=== PATIENT | male | born 1955 | race Caucasian/White ===

== ENCOUNTER 2017-01-16 13:32 | Emergency (ER) | payer BC, OTHER ==
[2017-01-16 13:51] VITALS: TEMP 99.6; BMI 30.4
--- NOTE | 2017-01-16 14:23 | PDOC ---
History of Present Illness - General History Source: Patient Exam Limitations: No Limitations - History of Present Illness Initial Comments: 01/16/17 14:46 The patient is a 61 year old male, with a significant past medical history of COPD, hypertension, hyperlipidemia, and ID (s/p cardiac stents X3), who presents to the emergency department complaining of 2 week history of a cough. Patient reports the cough is productive yellow/white sputum. He reports associated chest pain and back pain, which he describes as sharp. He reports his pain is pleuritic in nature.Over the past couple of days he has felt a subjective fever and chills, but admits he has not taken his temperature. Patient reports he has been using his albuterol pump more frequently than normal. He denies any shortness of breath, diaphoresis, or palpitations. He denies any leg pain or difficulty ambulating. Patient reports his chest and back pain are worse at night. He denies any recent travel or sick contacts Allergies: NKDA Past Surgical History: Cardiac stents X3 Social History: Current everyday smoker(10 cigarettes per day). Social ETOH use. No recreational drug use. <Mikayla Pedraza - Last Filed: 01/16/17 15:18> - General History Source: Patient, Old Records Exam Limitations: No Limitations <Terri Menjivar - Last Filed: 01/16/17 18:11> - General Stated Complaint: COUGH, BACK PAIN Time Seen by Provider: 01/16/17 14:22 Past History <Mikayla Pedraza - Last Filed: 01/16/17 15:18> - Past Medical History Cardiac Disorders: Yes (ID) HTN: Yes Hypercholesterolemia: Yes - Surgical History Cardiac Surgery: Yes (STENTS X 3.) - Psycho/Social/Smoking Cessation Hx Anxiety: No Suicidal Ideation: No Smoking History: Current every day smoker Have you smoked in the past 12 months: No Number of Cigarettes Smoked Daily: 10 Information on smoking cessation initiated: Yes 'Breaking Loose' booklet given: 01/16/17 Hx Alcohol Use: Yes (SOCIAL) Drug/Substance Use Hx: No Substance Use Type: None Hx Substance Use Treatment: No <Terri Menjivar - Last Filed: 01/16/17 18:11> - Past Medical History Allergies/Adverse Reactions: Allergies Allergy/AdvReac Type Severity Reaction Status Date / Time No Known Allergies Allergy Verified 01/16/17 13:51 Home Medications: Ambulatory Orders Atorvastatin Ca [Lipitor] 20 mg PO HS 10/06/15 Carvedilol [Coreg] 0 mg PO DAILY 10/06/15 Clopidogrel Bisulfate [Plavix -] 75 mg PO DAILY 10/06/15 Pantoprazole Sodium [Protonix -] 40 mg PO DAILY 10/06/15 Levothyroxine [Synthroid -] 200 mcg PO DAILY 10/07/15 Meclizine HCl [Antivert -] 25 mg PO TID #90 tablet 10/07/15 Amlodipine Besylate/Benazepril [Lotrel 5-40 mg Capsule] 1 each PO DAILY Aspirin [ASA -] 81 mg PO DAILY 01/16/17 Levofloxacin [Levaquin] 500 mg PO DAILY #7 tablet 01/16/17 Review of Systems - Review of Systems Able to Perform ROS?: Yes Comments:: 01/16/17 14:47 GENERAL/CONSTITUTIONAL: Yes: +fever, +chills. No weakness. HEAD, EYES, EARS, NOSE AND THROAT: No change in vision. No ear pain or discharge. No sore throat. CARDIOVASCULAR: Yes: +chest pain. No shortness of breath. RESPIRATORY: Yes: +cough. No wheezing, or hemoptysis. GASTROINTESTINAL: No nausea, vomiting, diarrhea or constipation. GENITOURINARY: No dysuria, frequency, or change in urination. MUSCULOSKELETAL: Yes: +back pain. No joint or muscle swelling or pain. No neck pain. SKIN: No rash NEUROLOGIC: No headache, vertigo, loss of consciousness, or change in strength/ sensation. ENDOCRINE: No increased thirst. No abnormal weight change. HEMATOLOGIC/LYMPHATIC: No anemia, easy bleeding, or history of blood clots. ALLERGIC/IMMUNOLOGIC: No hives or skin allergy. <Mikayla Pedraza - Last Filed: 01/16/17 15:18> *Physical Exam - Vital Signs Last Vital Signs Temp Pulse Resp BP Pulse Ox 99.6 F 67 20 135/59 97 01/16/17 13:47 01/16/17 13:47 01/16/17 13:47 01/16/17 13:47 01/16/17 13:47 - Physical Exam Comments: 01/16/17 14:47 GENERAL: Awake, alert, and fully oriented, in no acute distress HEAD: No signs of trauma EYES: PERRLA, EOMI, sclera anicteric, conjunctiva clear ENT: Auricles normal inspection, hearing grossly normal, nares patent, oropharynx clear without exudates. Moist mucosa NECK: Normal ROM, supple, no lymphadenopathy, JVD, or masses LUNGS: Wheezing in the right lung field, with fair air movement. Left lung field is normal. No crackles HEART: Regular rate and rhythm, normal S1 and S2, no murmurs, rubs or gallops ABDOMEN: Soft, nontender, normoactive bowel sounds. No guarding, no rebound. No masses EXTREMITIES: Normal range of motion, no edema. No clubbing or cyanosis. No cords, erythema, or tenderness NEUROLOGICAL: Cranial nerves II through XII grossly intact. Normal speech, normal gait SKIN: Warm, Dry, normal turgor, no rashes or lesions noted. <Mikayla Pedraza - Last Filed: 01/16/17 15:18> - Vital Signs Last Vital Signs Temp Pulse Resp BP Pulse Ox 99.6 F 67 20 135/59 97 01/16/17 13:47 01/16/17 13:47 01/16/17 13:47 01/16/17 13:47 01/16/17 13:47 <Terri Menjivar - Last Filed: 01/16/17 18:11> ED Treatment Course - LABORATORY CBC & Chemistry Diagram: 01/16/17 15:10 01/16/17 15:10 <Mikayla Pedraza - Last Filed: 01/16/17 15:18> - LABORATORY CBC & Chemistry Diagram: 01/16/17 15:10 01/16/17 15:10 <Terri Menjivar - Last Filed: 01/16/17 18:11> Medical Decision Making - Medical Decision Making 01/16/17 14:36 61-year-old male with history of hypertension and COPD who presents the emergency Department with complaints of 2 week history of cough productive with yellow/white sputum and pleuritic chest pain. Differential diagnosis includes but is not limited to: Pneumonia, COPD exacerbation, ALLERGIES, atypical presentation of ACS, pneumothorax, toxic/metabolic derangement. Plan: 1. DuoNeb treatment 2. Chest x-ray 3. EKG 4. Labs 5. Observe and reevaluate 01/16/17 18:09 Addendum: Labs were reviewed and are noted in the EMR. The EKG was wnl. CXR was negative for acute pulmonary process. Will discharge on levaquin for bronchitis. Follow-up with PCP. Return to the ED if Sx persist, worsen or new Sx arise. <Terri Menjivar - Last Filed: 01/16/17 18:11> *DC/Admit/Observation/Transfer - Attestations Scribe Attestion: 01/16/17 14:47 Documentation prepared by Mikayla Pedraza, acting as senior medical writer for Terri Menjivar MD. <Mikayla Pedraza - Last Filed: 01/16/17 15:18> - Discharge Dispostion Admit: No - Attestations Physician Attestion: 01/16/17 14:36 I, Dr. Terri Menjivar, attest that the scribes documentation that appears above has been prepared under my direction and personally reviewed by me in its entirety. I confirmed that the note above accurately reflects all work, treatment, procedures, and medical decision-making performed by me. <Terri Menjivar - Last Filed: 01/16/17 18:11> Diagnosis at time of Disposition: Cough, Chest pain, Bronchitis - Discharge Dispostion Disposition: HOME Condition at time of disposition: Stable - Prescriptions Prescriptions: Levofloxacin [Levaquin] 500 mg PO DAILY #7 tablet - Patient Instructions Printed Discharge Instructions: DI for Acute Bronchitis Additional Instructions: You are being diagnosed with bronchitis. You're being prescribed Levaquin 500 mg take 1 tablet daily for the next 7 days. Please follow-up with her primary care physician by Wednesday return to the emergency department if your symptoms persist, worsen, or new symptoms arise.
[2017-01-16] MEDS ORDERED: ALBUTEROL SO4 2.5/IPRATROPIUM 0.5 INH SOL 3 ML VIAL.NEB. NEB ONE ×2 (14:35→15:17)
[2017-01-16 15:15] LABS: BASOPHIL 0.8 % (0-2.0); EOSINOPHIL 10.9 % (0-4.5); MCH 28.1 pg (25.7-33.7); MCHC 32.8 g/dl (32.0-35.9); MEAN CELL VOLUME 85.7 fl (80-96); MEAN PLT VOLUME 7.8 fl (7.5-11.1); NEUTROPHILS 53.7 % (42.8-82.8); PLATELET COUNT 171 K/MM3 (134-434); WHITE BLOOD COUNT 10.6 K/mm3 (4.0-10.0)
[2017-01-16 15:43] LABS: ANION GAP 6 (8-16); CALCIUM 8.6 mg/dL (8.5-10.1); CO2 25 mmol/L (21-32); CREATININE 1.4 mg/dL (0.7-1.3); GLUCOSE,RANDOM 92 mg/dL (74-106); PHOSPHOROUS 3.2 mg/dL (2.5-4.9)
[2017-01-16 15:45] LABS: CPK 208 IU/L (39-308); TROPONIN I < 0.02 ng/ml (0.00-0.05)
[2017-01-16] MEDS ORDERED: LEVOFLOXACIN 500 MG TABLET (FP) PO ONE (18:08)
[2017-01-16] MEDS ORDERED: LEVOFLOXACIN 250 MG TABLET (FP) ONE (18:15)
[2017-01-16 18:22] VITALS: BP 131/66; PULSE 65
--- NOTE | 2017-01-17 17:47 | EKG ---
Test Reason : Blood Pressure : / mmHG Vent. Rate : 056 BPM Atrial Rate : 056 BPM P-R Int : 156 ms QRS Dur : 090 ms QT Int : 398 ms P-R-T Axes : 025 062 038 degrees QTc Int : 384 ms SINUS BRADYCARDIA OTHERWISE NORMAL ECG WHEN COMPARED WITH ECG OF 06-OCT-2015 08:31, NO SIGNIFICANT CHANGE WAS FOUND Confirmed by CATINA PAN MD ([id number]) on 01/17/2017 5:47:18 PM Referred By: Confirmed By:CATINA PAN MD
== END 2017-01-16 18:22 | disposition home or self-care (01) ==
LOC: SUPCPDRO 13:32 → JER 13:32
PROC: 3E0F7GC Introduction of Other Therapeutic Substance into Respiratory Tract, Via Natural or Artificial Opening (ICD-10-PCS; principal; 2017-01-16)
DX: J40 Bronchitis, not specified as acute or chronic (principal); J44.9 Chronic obstructive pulmonary disease, unspecified; I25.2 Old myocardial infarction; I10 Essential (primary) hypertension; Z95.5 Presence of coronary angioplasty implant and graft
CPT/HCPCS: 36415; 71020-TC; 80048; 83735; 84100; 84484; 85025; 93005; 93010; 99283-25

== ENCOUNTER 2017-12-08 14:27 | Observation (INO) | payer BC, OTHER ==
[2017-12-08 14:32] VITALS: BMI 29.9
--- NOTE | 2017-12-08 14:47 | PDOC ---
History of Present Illness - General Chief Complaint: Chest Pain Stated Complaint: CHEST PAIN Time Seen by Provider: 12/08/17 14:47 - History of Present Illness Initial Comments: 62 year old male with PMH of HTN, HLD, CAD (s/p stents x 2 10 and 15 years ago) , angina, CKD, and hypothyroidism presenting with acute on subacute chest pain. Patient states that he has experienced chest pressure and burning intermittently over the past 10 years but much more frequently over the past three months since he was diagnosed with CKD and his Imdur was reduced. However , the past three days have been particularly bothersome and he experienced severe chest pressure yesterday evening. The chest pressure was central across bilateral breasts, non-radiatiing, non pleuritic, non-exertional, and did not co -presnet with nausea, vomiting, diaphoresis, SOB, or other symptoms. He was concerned because this chest pressure was much more severe than he has experienced since his [place] 10 years prior. He currently denies chest pain but instead has some substernal burning. Denies fevers, chills, nausea vomiting, diarrhea, constipation, recent illness, or other symptoms. His last echo was one year prior and he states it was fine. His last stress test was 8 years prior and he states it was also fine. His air quality specialist is Dr. Germain and his PCP is Dr. Mendoza, both from [facility]. 12/08/17 15:23 Past History - Past Medical History Allergies/Adverse Reactions: Allergies Allergy/AdvReac Type Severity Reaction Status Date / Time No Known Allergies Allergy Verified 12/08/17 14:29 Home Medications: Ambulatory Orders Atorvastatin Ca [Lipitor] 20 mg PO HS 10/06/15 Carvedilol [Coreg] 40 mg PO DAILY 10/06/15 Clopidogrel Bisulfate [Plavix -] 75 mg PO DAILY 10/06/15 Levothyroxine [Synthroid -] 175 mcg PO DAILY 10/07/15 Aspirin [ASA -] 81 mg PO DAILY 01/16/17 Benazepril HCl 10 mg PO DAILY 12/08/17 Isosorbide Mononitrate [Isosorbide Mononitrate ER] 30 mg PO DAILY 12/08/17 Montelukast Sodium [Singulair] 10 mg PO HS 12/08/17 [place]-3 Fatty Acids [[place]-3] 1,000 mg PO DAILY 12/08/17 Cardiac Disorders: Yes ([place]) COPD: No Diabetes: Yes ([place]) Dialysis: No (CKD STAGE 3) HTN: Yes Hypercholesterolemia: Yes - Surgical History Cardiac Surgery: Yes (STENTS X 3.) - Suicide/Smoking/Psychosocial Hx Smoking History: Current every day smoker Have you smoked in the past 12 months: No Number of Cigarettes Smoked Daily: 10 Information on smoking cessation initiated: Yes 'Breaking Loose' booklet given: 12/08/17 Hx Alcohol Use: Yes (SOCIAL) Drug/Substance Use Hx: No Substance Use Type: None Hx Substance Use Treatment: No Review of Systems - Review of Systems Constitutional: No: Chills, Diaphoresis, Fever HEENTM: No: Eye Pain, Blurred Vision, Recent change in vision Respiratory: No: Cough, Orthopnea, Shortness of Breath, SOB with Exertion, SOB at Rest, Wheezing, Hemoptysis Cardiac (ROS): Yes: Chest Pain. No: Irregular Heart Rate, Lightheadedness, Palpitations, Syncope ABD/GI: No: Diarrhea, Nausea, Vomiting : No: Burning, Dysuria, Discharge, Hematuria Musculoskeletal: No: Joint Pain, Muscle Pain, Muscle Weakness Integumentary: No: Bruising, Dryness, Erythema Neurological: No: Headache, Numbness, Paresthesia, Weakness Hematologic/Lymphatic: No: Anemia, Easy Bleeding, Easy Bruising *Physical Exam - Vital Signs Last Vital Signs Temp Pulse Resp BP Pulse Ox 98.3 F 65 18 149/62 100 12/08/17 14:30 12/08/17 14:30 12/08/17 14:30 12/08/17 14:30 12/08/17 14:30 - Physical Exam General Appearance: Yes: Nourished, Appropriately Dressed. No: Apparent Distress HEENT: positive: EOMI, GORDO, Normal ENT Inspection Neck: positive: Trachea midline, Normal Thyroid, Supple. negative: Tender, Rigid Respiratory/Chest: positive: Lungs Clear, Normal Breath Sounds. negative: Chest Tender, Respiratory Distress, Accessory Muscle Use Cardiovascular: positive: Regular Rhythm, Regular Rate, Murmur (2/6 systolic murmur best heard in the Aortic auscultary region.) Gastrointestinal/Abdominal: positive: Normal Bowel Sounds, Flat, Soft. negative : Tender Lymphatic: negative: Adenopathy, Tenderness Musculoskeletal: positive: Normal Inspection. negative: CVA Tenderness Extremity: positive: Normal Capillary Refill, Normal Inspection, Normal Range of Motion. negative: Tender Integumentary: positive: Normal Color, Dry, Warm Neurologic: positive: manager internship II-XII NML intact, Fully Oriented, Alert, Normal Mood/ Affect, Normal Response, Motor Strength 5/5 Heart Score/ECG Review - History History: Highly suspicious - Electrocardiogram EKG: Normal - Age Age: 45-65 - Risk Factors Risk Factors Heart Score: Yes Hx Hypercholesterolemia, Yes Hx Hypertension Based on the list above the patient has:: 1-2 risk factors - Troponin Troponin: </= normal limit - Score Heart Score - Total: 4 ED Treatment Course - LABORATORY CBC & Chemistry Diagram: 12/08/17 15:25 12/08/17 16:50 Medical Decision Making - Medical Decision Making 62 year old malew tih multiple cardiac comorbidities presenting with substernal burning after an episode of chest pressure that began 15 hours prior to presentation. Currently he has no chest pressure, EKG does not demonstrate any changes (Rate 60, MO interval 144, QRS 90, QTc 372, normal axis, with slightly peaked t waves in V2 that is unchanged from previous EKG in 01/04, no ST elevations, pr depressions, or t-wave inversions), and his first set of troponins are negative. 12/08/17 15:45 First troponin negative. Will admit tele obs under Dr. Wright. 12/08/17 18:03 *DC/Admit/Observation/Transfer Diagnosis at time of Disposition: Chest pain Qualifiers: Chest pain type: unspecified Qualified Code(s): R07.9 - Chest pain, unspecified - Referrals Referrals: Lanre Martin MD [Primary Care Provider] - - Patient Instructions - Post Discharge Activity
[2017-12-08] MEDS ORDERED: MAG HYDROX/AL HYDROX/SIMETH 30 ML UNIT-DOSE CUP PO ONE (15:25)
[2017-12-08 15:31] LABS: BASO % 0.6 % (0-2.0); EOS % 8.2 % (0-4.5); HEMATOCRIT 41.2 % (35.4-49); HEMOGLOBIN 13.6 GM/dL (11.7-16.9); LYMPH % 37.3 % (8-40); MCH 28.4 pg (25.7-33.7); MCHC 33.1 g/dl (32.0-35.9); MEAN CELL VOLUME 85.9 fl (80-96); MEAN PLT VOLUME 8.1 fl (7.5-11.1); MONO % 6.5 % (3.8-10.2); NEUT % 47.4 % (42.8-82.8); PLATELET COUNT 193 K/MM3 (134-434); RBC 4.79 M/mm3 (4.00-5.60); RDW 15.6 % (11.9-15.9); WHITE BLOOD COUNT 8.4 K/mm3 (4.0-10.0)
[2017-12-08 15:46] LABS: INR 1.01 (0.82-1.09); PROTHROMBIN TIME (PATIENT) 11.4 SEC (9.7-13.0)
[2017-12-08] MEDS ORDERED: MAG HYDROX/AL HYDROX/SIMETH 30 ML UNIT-DOSE CUP ONE (15:54)
[2017-12-08] MEDS ORDERED: FAMOTIDINE 20 MG/50 ML IVPB 20 MG/50 ML MG IVPB ONE ×2 (15:55→15:56)
--- NOTE | 2017-12-08 16:02 | EKG ---
Test Reason : Blood Pressure : / mmHG Vent. Rate : 060 BPM Atrial Rate : 060 BPM P-R Int : 144 ms QRS Dur : 090 ms QT Int : 372 ms P-R-T Axes : 026 059 031 degrees QTc Int : 372 ms NORMAL SINUS RHYTHM NORMAL ECG WHEN COMPARED WITH ECG OF 16-JAN-2017 15:06, NO SIGNIFICANT CHANGE WAS FOUND Confirmed by JANE CHAND MD ([id number]) on 12/08/2017 4:02:01 PM Referred By: Confirmed By:JANE CHAND MD
--- NOTE | 2017-12-08 16:07 | PDOC ---
Attending Attestation - [facility] HPI: 12/08/17 17:16 The patient is a 62 year old male presenting with his , with a significant past medical history of HTN, HLD, CAD (s/p stents x 2 10 and 15 years ago), angina, CKD, and hypothyroidism , who presents to the emergency department complaining of chest pain since yesterday. He notes that he has had chest pain in the past but have gotten more frequent recently. He describes his chest pain as chest pressure / burning sensation, ranging from mild to moderate, without radiation or modifying factors. His last echo was one year prior and he states it was fine. His last stress test was 8 years prior and he states it was also fine. The patient denies shortness of breath, headache or dizziness. Denies fever, chills, nausea, vomiting, diarrhea and constipation. Allergies: None Past surgical history: Cardiac stents x 2 Social History: Alcohol use. Cigarette use. No drug use reported Cardio: Dr. Germain PCP: Dr. Mendoza - Physicial Exam PE: 12/08/17 17:16 Constitutional: Awake, alert, oriented. No acute distress. Head: Normocephalic. Atraumatic Eyes: PERRL. EOMI. Conjunctivae are not pale. ENT: Mucous membranes are moist and intact. Posterior pharynx without exudates or erythema. Uvula midline. Neck: Supple. Full ROM. No lymphadenopathy. Cardiovascular: Irregularly Irregular. Regular rhythm. S1, S2 regular. Distal pulses are 2+ and symmetric. Pulmonary/Chest: No evidence of respiratory distress. Clear to auscultation bilaterally No wheezing, rales or rhonchi. Abdominal: Soft and non-distended. There is no tenderness. No rebound, guarding or rigidity. No organomegaly. No palpable masses. Good bowel sounds. Back: No CVA tenderness. Musculoskeletal: No edema. No cyanosis. No clubbing. Full range of motion in all extremities. Nocalf tenderness. Radial/pedal pulses are intact and 2+ bilaterally Skin: Skin is warm and dry. No petechiae. No purpura. Neurological: Alert and oriented to person, place, and time. Cranial nerves II -XII are grossly intact. Normal speech. Strength is grossly symmetric. No sensory deficits. Psychiatric: Good eye contact. Normal interaction, affect and behavior. <Rigoberto Young - Last Filed: 12/08/17 17:31> - Resident Resident Name: Radha Yadaniellevirgilio - ED Attending Attestation I have performed the following: I have examined & evaluated the patient, The case was reviewed & discussed with the resident, I agree w/resident's findings & plan, Exceptions are as noted - Medical Decision Making 12/08/17 16:07 I, Dr. Gifty Farmer, DO, attest that this document has been prepared under my direction and personally reviewed by me in its entirety. I further attest, that it accurately reflects all work, treatment, procedures and medical decision -making performed by me. 12/08/17 16:21 a/p: 62yo male with hx of CAD (2 stents) - district leader is at [facility] -cp worsening x 3 months after reducing imdur dose -assoc with n, belching, diaphoresis -substeral pain -will obtain ekg, labs, trop, cxr -will need to sta for obs for ACS workup and eval -will give ASA -will place on monitoring analyst 12/08/17 17:58 trop negative will need to stay for cards eval given cp 12/08/17 18:[address] Alcantar who accepts pt to tele consult placed to Dr. Castro ASA given pt updated on labs <Gifty Farmer - Last Filed: 12/08/17 18:24> Heart Score/ECG Review - History History: Moderately suspicious - Electrocardiogram EKG: Normal - Age Age: 45-65 - Risk Factors Risk Factors Heart Score: Yes Hx Hypertension (hx of CAD with stents) Based on the list above the patient has:: >/=3 risk factors or Hx atherosclerotic disease - Troponin Troponin: </= normal limit - Score Heart Score - Total: 4 - ECG Intrepretation Comment:: 12/08/17 16:12 sinus at 60, nl axis, nl interval, flora cute st/t wave findings <Gifty Farmer - Last Filed: 12/08/17 18:24>
[2017-12-08] MEDS ORDERED: ASPIRIN 81 MG CHEWABLE TABLETS PO ONE (16:13)
[2017-12-08] MEDS ORDERED: ASPIRIN 81 MG CHEWABLE TABLETS ONE (16:36)
[2017-12-08 17:33] LABS: ALBUMIN 3.4 g/dl (3.4-5.0); ANION GAP 5 (8-16); BILIRUBIN,TOTAL 0.3 mg/dL (0.2-1.0); BLOOD UREA NITROGEN 24 mg/dL (7-18); CALCIUM 8.8 mg/dL (8.5-10.1); CHLORIDE 109 mmol/L (98-107); CO2 27 mmol/L (21-32); CREATININE 1.4 mg/dL (0.7-1.3); GLUCOSE,RANDOM 88 mg/dL (74-106); POTASSIUM 4.8 mmol/L (3.5-5.1); SGOT/AST 20 U/L (15-37); SGPT/ALT 27 U/L (12-78); SODIUM 141 mmol/L (136-145); TOT PROT 7.3 g/dl (6.4-8.2)
[2017-12-08 17:36] LABS: ALK PHOS 51 U/L (45-117)
[2017-12-08 18:02] LABS: PHOSPHOROUS 3.6 mg/dL (2.5-4.9)
--- NOTE | 2017-12-08 20:41 | HP ---
Admitting History and Physical - Primary Care Physician PCP: Alessandro Alcantar - Admission Chief Complaint: chest pain History of Present Illness: 62 year old male presenting with his , with a significant past medical history of HTN, HLD, CAD (s/p stents x 2 10 and 15 years ago), angina, CKD, and hypothyroidism , who presents to the emergency department complaining of chest pain since yesterday. He notes that he has had chest pain in the past but have gotten more frequent recently. He describes his chest pain as chest pressure / burning sensation, ranging from mild to moderate, without radiation or modifying factors. His last echo was one year prior and he states it was fine. His last stress test was 8 years prior and he states it was also fine. The patient denies shortness of breath, headache or dizziness. Denies fever, chills, nausea, vomiting, diarrhea and constipation. - Past Medical History Cardiovascular: Yes: CAD, HTN, Hyperlipdemia, Other (stents) - Smoking History Smoking history: Current every day smoker Have you smoked in the past 12 months: No Aproximately how many cigarettes per day: 10 - Alcohol/Substance Use Hx Alcohol Use: Yes (SOCIAL) Home Medications - Allergies Allergies/Adverse Reactions: Allergies Allergy/AdvReac Type Severity Reaction Status Date / Time No Known Allergies Allergy Verified 12/08/17 14:29 - Home Medications Home Medications: Ambulatory Orders Atorvastatin Ca [Lipitor] 20 mg PO HS 10/06/15 Carvedilol [Coreg] 40 mg PO DAILY 10/06/15 Clopidogrel Bisulfate [Plavix -] 75 mg PO DAILY 10/06/15 Levothyroxine [Synthroid -] 175 mcg PO DAILY 10/07/15 Aspirin [ASA -] 81 mg PO DAILY 01/16/17 Benazepril HCl 10 mg PO DAILY 12/08/17 Isosorbide Mononitrate [Isosorbide Mononitrate ER] 30 mg PO DAILY 12/08/17 Montelukast Sodium [Singulair] 10 mg PO HS 12/08/17 [place]-3 Fatty Acids [[place]-3] 1,000 mg PO DAILY 12/08/17 Review of Systems - Review of Systems Cardiovascular: reports: Chest Pain Physical Examination Vital Signs: Vital Signs Temperature 98.3 F 12/08/17 14:30 Pulse Rate 58 L 12/08/17 19:43 Respiratory Rate 18 12/08/17 19:43 Blood Pressure 130/62 12/08/17 19:43 O2 Sat by Pulse Oximetry (%) 98 12/08/17 19:43 Constitutional: Yes: No Distress HENT: Yes: Atraumatic Neck: Yes: Supple Cardiovascular: Yes: Regular Rate and Rhythm Respiratory: Yes: CTA Bilaterally Gastrointestinal: Yes: Normal Bowel Sounds Extremities: Yes: WNL Neurological: Yes: Alert, Oriented Labs: CBC, BMP 12/08/17 15:25 12/08/17 16:50 Problem List - Problems (1) Chest pain Assessment/Plan: tele monitoring fu cardiac enzymes cardiology consult continue home meds Code(s): R07.9 - CHEST PAIN, UNSPECIFIED Qualifiers: Chest pain type: unspecified Qualified Code(s): R07.9 - Chest pain, unspecified (2) HTN (hypertension) Assessment/Plan: on meds stable Code(s): I10 - ESSENTIAL (PRIMARY) HYPERTENSION (3) HLD (hyperlipidemia) Assessment/Plan: on med stable Code(s): E78.5 - HYPERLIPIDEMIA, UNSPECIFIED Assessment/Plan Laboratory Tests 12/08/17 12/08/17 12/08/17 15:25 15:25 15:25 WBC 8.4 RBC 4.79 Hgb 13.6 Hct 41.2 MCV 85.9 MCH 28.4 MCHC 33.1 RDW 15.6 Plt Count 193 MPV 8.1 Absolute Neuts (auto) 4.0 Neutrophils % 47.4 Lymphocytes % 37.3 D Monocytes % 6.5 Eosinophils % 8.2 H Basophils % 0.6 Nucleated RBC % 0 PT with INR 11.40 INR 1.01 Sodium Cancelled Potassium Cancelled Chloride Cancelled Carbon Dioxide Cancelled Anion Gap Cancelled BUN Cancelled Creatinine Cancelled Creat Clearance w eGFR Cancelled Random Glucose Cancelled Calcium Cancelled Phosphorus Magnesium Total Bilirubin Cancelled AST Cancelled ALT Cancelled Alkaline Phosphatase Cancelled Creatine Kinase Cancelled Troponin I Cancelled Total Protein Cancelled Albumin Cancelled TSH Cancelled 12/08/17 12/08/17 16:43 16:50 WBC RBC Hgb Hct MCV MCH MCHC RDW Plt Count MPV Absolute Neuts (auto) Neutrophils % Lymphocytes % Monocytes % Eosinophils % Basophils % Nucleated RBC % PT with INR INR Sodium 141 Potassium 4.8 Chloride 109 H Carbon Dioxide 27 Anion Gap 5 L BUN 24 H D Creatinine 1.4 H Creat Clearance w eGFR 51.02 Random Glucose 88 Calcium 8.8 Phosphorus 3.6 Magnesium 2.0 Total Bilirubin 0.3 D AST 20 ALT 27 Alkaline Phosphatase 51 Creatine Kinase Troponin I < 0.02 Total Protein 7.3 Albumin 3.4 TSH
[2017-12-08] MEDS ORDERED: MONTELUKAST NA 10 MG TABLET PO SCH (22:00)
[2017-12-08] MEDS ORDERED: FAMOTIDINE 20 MG/50 ML IVPB 20 MG/50 ML MG IVPB SCH (22:00)
[2017-12-08] MEDS ORDERED: ATORVASTATIN CA 20 MG TABLET (FP) PO SCH (22:00)
[2017-12-09] MEDS ORDERED: LEVOTHYROXINE NA 125 MCG TABLET (FP) ONE (06:33)
[2017-12-09] MEDS ORDERED: LEVOTHYROXINE NA 50 MCG TABLET (FP) ONE (06:34)
[2017-12-09] MEDS ORDERED: LEVOTHYROXINE NA 175 MCG TABLET PO SCH (07:00)
[2017-12-09] MEDS ORDERED: LEVOTHYROXINE 50 MCG, LEVOTHYROXINE 125 MCG PO SCH (07:00)
[2017-12-09] MEDS ORDERED: ASPIRIN 81 MG CHEWABLE TABLETS PO SCH (10:00)
[2017-12-09] MEDS ORDERED: PANTOPRAZOLE 40 MG TABLET (FP) PO SCH (10:00)
[2017-12-09] MEDS ORDERED: CARVEDILOL PHOSPHATE CR 40 MG CAPSULE (FP) PO SCH (10:00)
[2017-12-09] MEDS ORDERED: ISOSORBIDE MONONITRATE 30 MG TAB.SR.24H (FP) PO SCH (10:00)
--- NOTE | 2017-12-09 14:49 | CON.CARD ---
Consult Consult Specialty:: Cardiology Referred by:: Alessandro Alcantar Reason for Consultation:: Chest pain and CAD - History of Present Illness Chief Complaint: chest pain History of Present Illness: 62 year old male with a pmhx of CAD s/p multiple stents many years ago, htn, hld, dm borderline, ckd, and hypothyroidism who presents with chest pain. Patient was home when started feeling chest pressure like a heaviness on his chest which was mild to moderate in intensity. Some mild sob but no radiation. Lasted 2-3 hours and than recurred earlier next morning but this time associated with a warm burning sensation across chest. - History Source History Provided By: Patient, Family Member, Medical Record - Past Medical History Cardio/Vascular: Yes: CAD, HTN, Hyperlipdemia, Other (stents) - Alcohol/Substance Use Hx Alcohol Use: Yes (SOCIAL) - Smoking History Smoking history: Current every day smoker Have you smoked in the past 12 months: No Aproximately how many cigarettes per day: 10 Home Medications - Allergies Allergies/Adverse Reactions: Allergies Allergy/AdvReac Type Severity Reaction Status Date / Time No Known Allergies Allergy Verified 12/08/17 14:29 - Home Medications Home Medications: Ambulatory Orders Atorvastatin Ca [Lipitor] 20 mg PO HS 10/06/15 Carvedilol [Coreg] 40 mg PO DAILY 10/06/15 Clopidogrel Bisulfate [Plavix -] 75 mg PO DAILY 10/06/15 Levothyroxine [Synthroid -] 175 mcg PO DAILY 10/07/15 Aspirin [ASA -] 81 mg PO DAILY 01/16/17 Benazepril HCl 10 mg PO DAILY 12/08/17 Isosorbide Mononitrate [Isosorbide Mononitrate ER] 30 mg PO DAILY 12/08/17 Montelukast Sodium [Singulair] 10 mg PO HS 12/08/17 [place]-3 Fatty Acids [[place]-3] 1,000 mg PO DAILY 12/08/17 Vital Signs: Vital Signs Temperature 98.1 F 12/09/17 10:00 Pulse Rate 52 L 12/09/17 10:00 Respiratory Rate 12/09/17 11:57 Blood Pressure 127/57 12/09/17 10:00 O2 Sat by Pulse Oximetry (%) 98 12/09/17 11:57 Constitutional: Yes: No Distress Neck: Yes: Supple Respiratory: Yes: CTA Bilaterally Gastrointestinal: Yes: Normal Bowel Sounds, Soft Cardiovascular: Yes: Regular Rate and Rhythm JVD: No Carotid Bruit: No PMI: Non-Displaced Heart Sounds: Yes: S1, S2 Murmur: No: Systolic Murmur Edema: No - Other Data Labs, Other Data: CBC, BMP 12/08/17 15:25 12/08/17 16:50 INR, PTT INR 1.01 (0.82-1.09) 12/08/17 15:25 Troponin, BNP 12/08/17 12/08/17 12/08/17 15:25 16:50 21:00 Troponin I Cancelled < 0.02 < 0.02 Troponin, BNP 12/08/17 12/08/17 12/08/17 15:25 16:50 21:00 Troponin I Cancelled < 0.02 < 0.02 Imaging - Results Chest X-ray: Report Reviewed EKG: Image Reviewed Problem List - Problems (1) Chest pain Code(s): R07.9 - CHEST PAIN, UNSPECIFIED Qualifiers: Chest pain type: unspecified Qualified Code(s): R07.9 - Chest pain, unspecified Assessment/Plan 62 year old male with a pmhx of CAD s/p multiple stents many years ago, htn, hld , dm borderline, ckd, and hypothyroidism who presents with chest pain. Patient was home when started feeling chest pressure like a heaviness on his chest which was mild to moderate in intensity. Some mild sob but no radiation. Lasted 2-3 hours and than recurred earlier next morning but this time associated with a warm burning sensation across chest. 1) Angina/CAD -No acute ekg changes, normal LVEF, and negative cardiac enzymes. -Given the nature of his symptoms and his history recommended transfer tomorrow for cardiac cath at [facility]. Patient was informed of reasons and benefits/risks of procedure. He defers at this time despite risk of cardiac event/ as he is concerned about his kidney function. I offered a kidney evaluation as an inpatient and he says he wants to discuss it with his kidney doctor and has an appt on Wednesday. Patient has no symptoms since presenting to the floor. No arrhythmias on tele. Walks on the floor with no complaints. Patient also says he has a [facility] appt this Wednesday at Dr. Mendoza's office. Gave him my info as well. Would continue aspirin/plavix/statin/beta eliel/imdur. Please call me back if patient changes his mind. If agrees to cath, would start low dose IVF's tonight and mucomyst prior to cath and let me know and make NPO tonight.
--- NOTE | 2017-12-09 16:22 | PN ---
Progress Note, Physician - Current Medication List Current Medications: Active Medications Aspirin (Asa -) 81 mg PO DAILY [facility] Last Admin: 12/09/17 10:19 Dose: 81 mg Atorvastatin Calcium (Lipitor -) 20 mg PO HS [facility] Last Admin: 12/08/17 22:36 Dose: 20 mg Carvedilol (Coreg Cr -) 40 mg PO DAILY [facility] Last Admin: 12/09/17 10:19 Dose: Not Given Isosorbide Mononitrate (Imdur -) 30 mg PO DAILY [facility] Last Admin: 12/09/17 10:19 Dose: 30 mg Levothyroxine Sodium 50 mcg/ (Levothyroxine Sodium 125 mcg) 175 mcg PO DAILY@ 0700 [facility] Last Admin: 12/09/17 06:35 Dose: 175 mcg Montelukast Sodium (Singulair -) 10 mg PO [facility] Last Admin: 12/08/17 22:36 Dose: 10 mg Pantoprazole Sodium (Protonix -) 40 mg PO DAILY [facility] Last Admin: 12/09/17 10:19 Dose: 40 mg - Objective Vital Signs: Vital Signs Temperature 98.2 F 12/09/17 14:00 Pulse Rate 54 L 12/09/17 14:00 Respiratory Rate 20 12/09/17 11:57 Blood Pressure 146/66 12/09/17 14:00 O2 Sat by Pulse Oximetry (%) 98 12/09/17 11:57 Constitutional: Yes: No Distress HENT: Yes: Atraumatic Neck: Yes: Supple Cardiovascular: Yes: Regular Rate and Rhythm Respiratory: Yes: CTA Bilaterally Labs: CBC, BMP 12/08/17 15:25 12/08/17 16:50 INR, PTT INR 1.01 (0.82-1.09) 12/08/17 15:25 Problem List - Problems (1) Chest pain Assessment/Plan: troponins negative for cardiac cath Code(s): R07.9 - CHEST PAIN, UNSPECIFIED Qualifiers: Chest pain type: unspecified Qualified Code(s): R07.9 - Chest pain, unspecified (2) HTN (hypertension) Assessment/Plan: on meds stable Code(s): I10 - ESSENTIAL (PRIMARY) HYPERTENSION (3) HLD (hyperlipidemia) Assessment/Plan: on med stable Code(s): E78.5 - HYPERLIPIDEMIA, UNSPECIFIED
[2017-12-09 19:57] VITALS: BP 147/75; PULSE 58; TEMP 98
--- NOTE | 2017-12-09 20:25 | DS ---
Physical Examination Vital Signs: Vital Signs Temperature 98.0 F 12/09/17 17:00 Pulse Rate 58 L 12/09/17 17:00 Respiratory Rate 18 12/09/17 17:00 Blood Pressure 147/75 12/09/17 17:00 O2 Sat by Pulse Oximetry (%) 98 12/09/17 11:57 Labs: CBC, BMP 12/08/17 15:25 12/08/17 16:50 Discharge Summary Reason For Visit: CHEST PAIN - Instructions Referrals: Lanre Martin MD [Primary Care Provider] - Disposition: AGAINST MEDICAL ADVICE - Home Medications Comprehensive Discharge Medication List: Ambulatory Orders Atorvastatin Ca [Lipitor] 20 mg PO HS 10/06/15 Carvedilol [Coreg] 40 mg PO DAILY 10/06/15 Clopidogrel Bisulfate [Plavix -] 75 mg PO DAILY 10/06/15 Levothyroxine [Synthroid -] 175 mcg PO DAILY 10/07/15 Aspirin [ASA -] 81 mg PO DAILY 01/16/17 Benazepril HCl 10 mg PO DAILY 12/08/17 Isosorbide Mononitrate [Isosorbide Mononitrate ER] 30 mg PO DAILY 12/08/17 Montelukast Sodium [Singulair] 10 mg PO HS 12/08/17 [place]-3 Fatty Acids [[place]-3] 1,000 mg PO DAILY 12/08/17 AMA
== END 2017-12-09 18:30 | disposition left against medical advice (07) ==
LOC: JER 14:27 → JERBED 18:22 → J4W 22:22
PROVIDERS: ADMIT Internal Medicine; ATTEND Internal Medicine
DX: R07.9 Chest pain, unspecified (principal); I12.9 Hypertensive chronic kidney disease with stage 1 through stage 4 chronic kidney disease, or unspecified chronic kidney disease; N18.9 Chronic kidney disease, unspecified; E78.5 Hyperlipidemia, unspecified; I25.119 Atherosclerotic heart disease of native coronary artery with unspecified angina pectoris; E03.9 Hypothyroidism, unspecified; R73.03 Prediabetes; F17.200 Nicotine dependence, unspecified, uncomplicated; Z95.5 Presence of coronary angioplasty implant and graft; Z79.82 Long term (current) use of aspirin
CPT/HCPCS: 36415; 71046-TC-FY; 71250-TC; 80053; 82550; 82553; 83735; 84100; 84484; 85025; 85610; 93005; 93010; 99285-25; G0378